=== PATIENT | female | born 1990 | race American Indian/Alaskan Native ===

== ENCOUNTER 2018-04-07 07:56 | Outpatient (CLI) | payer MEDICAID ==
[2018-04-07 09:41] LABS: Bilirubin,Urine NEG (Negative); Blood,Urine NEG (Negative); Color,Urine Yellow (Yellow); Mucus,Urine FEW /HPF; Protein,Urine <15 mg/dL mg/dL (Negative)
[2018-04-07] MEDS: BRETHINE SUB-Q PRN ×3 (09:48→11:25)
[2018-04-07] MEDS ORDERED: LACTATED RINGERS 1,000 ML IV ONE ×2 (10:00→12:39)
--- NOTE | 2018-04-07 10:53 | Ultrasound Report ---
OB LIMITED INDICATION: Vaginal bleeding. Evaluate placenta. COMPARISON: None similar. TECHNIQUE: Transabdominal grayscale ultrasound with Doppler interrogation. Gestation: Barnes Position: Cephalic Amniotic Fluid: WNL (7-24 cm) NIA = 20.2 cm Placenta: Anterior; no evidence of abruption Placental Grade: Zero Heart Rate: 133 BPM Cervical length: 4.8 cm (Normal > 3 cm) CONCLUSION: Findings, as above.
[2018-04-07] MEDS ORDERED: ROCEPHIN/NS 1 GM/50 ML 1 GM/50 ML BAG IV ONE (11:00)
[2018-04-07] MEDS ORDERED: PROCARDIA*For Tocolysis only PO SCH (13:00)
[2018-04-07 13:36] VITALS: BP 113/75
== END 2018-04-07 15:03 | disposition home or self-care (01) ==
LOC: EDSTATUS 08:21 → TRG 08:25
PROVIDERS: ATTEND Obstetrics & Gynecology
DX: O46.92 Antepartum hemorrhage, unspecified, second trimester (principal); Z3A.27 27 weeks gestation of pregnancy
CPT/HCPCS: 59025; 76815; 81001; 96360; 96361; 96372; J0696; J3105; J7120

== ENCOUNTER 2018-06-17 23:48 | Outpatient (CLI) | payer MEDICAID ==
[2018-06-18 00:15] VITALS: BP 125/80
[2018-06-18] MEDS ORDERED: LACTATED RINGERS 1,000 ML IV ONE (01:55)
[2018-06-18] MEDS ORDERED: VISTARIL PO ONE (03:12)
== END 2018-06-18 03:31 | disposition home or self-care (01) ==
LOC: TRG 23:48
PROVIDERS: ATTEND Obstetrics & Gynecology
DX: O47.03 False labor before 37 completed weeks of gestation, third trimester (principal); Z3A.37 37 weeks gestation of pregnancy
CPT/HCPCS: 59025; 96360; J7120; Q0177

== ENCOUNTER 2019-09-25 16:32 | Emergency (ER) | payer MEDICAID ==
[2019-09-25 17:02] VITALS: BP 117/77
--- NOTE | 2019-09-25 17:34 | Event Note ---
ED Screening Note Date of service: 09/25/19 Time: 17:33 ED Screening Note: 29 y o f presents at 8 weeks cc of vag bleed and pelv pain began today This initial assessment/diagnostic orders/clinical plan/treatment(s) is/are subject to change based on patients health status, clinical progression and re- assessment by fellow clinical providers in the ED. Further treatment and workup at subsequent clinical providers discretion. Patient/guardian urged not to elope from the ED as their condition may be serious if not clinically assessed and managed. Initial orders include: labs, ua, US acc eval
[2019-09-25 18:13] LABS: Basophils % (Auto) 0.8 % (0.0-1.8); Eosinophils # (Auto) 0.1 K/mm3 (0.0-0.4); Eosinophils % (Auto) 0.9 % (0.0-4.3); Hematocrit 39.6 % (30.3-42.9); Hemoglobin 13.5 gm/dl (10.1-14.3); Lymphocytes # (Auto) 2.2 K/mm3 (1.2-5.4); Mean Corpuscular HGB Conc 34 % (30-34); Mean Corpuscular Volume 90 fl (79-97); Monocytes # (Auto) 0.5 K/mm3 (0.0-0.8); Platelet Count 256 K/mm3 (140-440); Red Blood Count 4.38 M/mm3 (3.65-5.03); Red Cell Distribution Width 12.9 % (13.2-15.2)
[2019-09-25 19:15] LABS: Bilirubin,Urine NEG (Negative); Blood,Urine MOD (Negative); Color,Urine Yellow (Yellow); Mucus,Urine FEW /HPF; Protein,Urine <15 mg/dL mg/dL (Negative); Urobilinogen,Urine < 2.0 mg/dL (<2.0)
--- NOTE | 2019-09-25 20:02 | Ultrasound Report ---
EXAMINATION: Obstetrical Ultrasound INDICATION: Vaginal bleeding in early . COMPARISON: Obstetrical ultrasound, 07/06/2018. FINDINGS: There is a single, living intrauterine . [place]-rump length = 0.8 cm = 6 weeks, 6 day(s). heart rate is 118 beats per minute. The bilateral adnexal regions appear within normal limits. There is no free pelvic fluid. IMPRESSION: 1. Single living intrauterine with estimated gestational age of 6 weeks, 6 days. Signer Name: Yesy Melvin MD Signed: 09/25/2019 7:58 PM Workstation Name: [id number]
== END 2019-09-25 18:51 | disposition left against medical advice (07) ==
LOC: ED 16:32
DX: O20.8 Other hemorrhage in early pregnancy (principal); Z3A.08 8 weeks gestation of pregnancy; Z53.21 Procedure and treatment not carried out due to patient leaving prior to being seen by health care provider
CPT/HCPCS: 36415; 76801; 76817; 81001; 84702; 85025; 86900; 86901

== ENCOUNTER 2019-09-25 21:40 | Emergency (ER) | payer MEDICAID ==
--- NOTE | 2019-09-25 22:14 | Emergency Department Report ---
ED HPI - General Chief complaint: Vaginal Bleeding Stated complaint: PAIN,BLEEDING 8 WEEKS Time Seen by Provider: 09/25/19 21:52 Source: patient Mode of arrival: Ambulatory Limitations: No Limitations - History of Present Illness Initial comments: Mrs. Luo is a 29-year-old [place] female vaginal spotting times today so she is currently 8 weeks she is . Patient has [employer] for follow- up but could not get in today for poor. States bleeding was pink spotting scant amount 1 episode. Currently with abdominal cramping for over 10. There is no nausea vomiting. There is no fever or chills. Symptoms are exacerbated by nothing. Symptoms are relieved by nothing. Pt states blood type is O+ verified via lab hx. MD Complaint: abdominal pain, vaginal bleeding Onset/Timin -: hour(s) Location: pelvis, abdomen Radiation: LLQ, suprapubic Severity: moderate Severity scale (0 -10): 4 Quality: cramping Consistency: intermittent Improves with: none Worsens with: none Associated symptoms: vaginal bleeding, abdominal pain (cramping ). denies: nausea/vomiting, vaginal discharge, dysuria, dysparuenia Vaginal bleeding: light :: Yes Number of weeks : 8 OB History - Current : no complications OB History - Previous Pregnancies: no complications - Related Data : 3 Para: 2 Ab: 0 Home Medications Medication Instructions Recorded Confirmed Last Taken Pnv No.95/Ferrous Fum/Folic AC 1 tab PO DAILY 04/07/18 06/18/18 06/11/18 [ Vitamins Tablet] Previous Rx's Medication Instructions Recorded Last Taken Type Ibuprofen [Motrin] 600 mg PO Q8H PRN #30 tablet 07/08/18 Unknown Rx oxyCODONE /ACETAMINOPHEN [Percocet 1 tab PO Q6HR PRN #30 tablet 07/08/18 Unknown Rx 5/325] labetaloL [Labetalol 100mg TAB] 100 mg PO BID #30 tablet 07/09/18 Unknown Rx Acetaminophen [Tylenol] 650 mg PO Q6H PRN #30 capsule 09/25/19 Unknown Rx Allergies Allergy/AdvReac Type Severity Reaction Status Date / Time No Known Allergies Allergy Verified 09/25/19 21:43 ED Review of Systems ROS: Stated complaint: PAIN,BLEEDING 8 WEEKS Other details as noted in HPI Constitutional: denies: chills, fever Eyes: denies: eye pain, eye discharge, vision change ENT: denies: ear pain, throat pain Respiratory: denies: cough, shortness of breath, wheezing Cardiovascular: denies: chest pain, palpitations Endocrine: no symptoms reported Gastrointestinal: abdominal pain. denies: nausea, vomiting, diarrhea, constipation, melena Genitourinary: denies: urgency, dysuria, frequency, hematuria, discharge, dyspareunia Musculoskeletal: denies: back pain, joint swelling, arthralgia, myalgia Skin: denies: rash, lesions Neurological: denies: headache, weakness, paresthesias Psychiatric: denies: anxiety, depression Hematological/Lymphatic: denies: easy bleeding, easy bruising ED Past Medical Hx - Past Medical History Hx Hypertension: Yes (gHTN) Hx Heart Attack/AMI: No Hx Diabetes: No Hx Deep Vein Thrombosis: No Hx Liver Disease: Yes (elevated LFTs ) Hx Renal Disease: No Hx Sickle Cell Disease: No Hx Seizures: No Hx Asthma: No Hx HIV: No - Social History Smoking Status: Never Smoker - Medications Home Medications: Home Medications Medication Instructions Recorded Confirmed Last Taken Type Pnv No.95/Ferrous Fum/Folic AC 1 tab PO DAILY 04/07/18 06/18/18 06/11/18 History [ Vitamins Tablet] Ibuprofen [Motrin] 600 mg PO Q8H PRN #30 tablet 07/08/18 Unknown Rx oxyCODONE /ACETAMINOPHEN [Percocet 1 tab PO Q6HR PRN #30 tablet 07/08/18 Unknown Rx 5/325] labetaloL [Labetalol 100mg TAB] 100 mg PO BID #30 tablet 07/09/18 Unknown Rx Acetaminophen [Tylenol] 650 mg PO Q6H PRN #30 capsule 09/25/19 Unknown Rx ED Physical Exam - General Limitations: No Limitations General appearance: alert, in no apparent distress - Head Head exam: Present: atraumatic, normocephalic - Eye Eye exam: Present: normal appearance, PERRL, EOMI Pupils: Present: normal accommodation - ENT ENT exam: Present: mucous membranes moist - Neck Neck exam: Present: normal inspection, full ROM. Absent: tenderness - Respiratory Respiratory exam: Present: normal lung sounds bilaterally. Absent: respiratory distress, wheezes, stridor - Cardiovascular Cardiovascular Exam: Present: regular rate, normal rhythm, normal heart sounds. Absent: systolic murmur, diastolic murmur, rubs, gallop - GI/Abdominal GI/Abdominal exam: Present: soft, normal bowel sounds. Absent: distended, tenderness, guarding, rebound, rigid, bruit, hernia - Rectal Rectal exam: Present: deferred - External exam: Present: other (exam deferred by patient ) - Extremities Exam Extremities exam: Present: normal inspection, full ROM. Absent: tenderness - Back Exam Back exam: Present: normal inspection, full ROM. Absent: tenderness, CVA tenderness (R), CVA tenderness (L), rash noted - Neurological Exam Neurological exam: Present: alert, oriented X3 - Psychiatric Psychiatric exam: Present: normal affect, normal mood - Skin Skin exam: Present: warm, dry, intact, normal color. Absent: rash ED Medical Decision Making - Radiology Data Radiology results: report reviewed, image reviewed Ordering Physician: LOCO CHILEL Date of Service: 09/25/19 Procedure(s): US OB transvaginal Accession Number(s): [id number] cc: LOCO CHILEL EXAMINATION: Obstetrical Ultrasound INDICATION: Vaginal bleeding in early . COMPARISON: Obstetrical ultrasound, 07/06/2018. FINDINGS: There is a single, living intrauterine . [place]-rump length = 0.8 cm = 6 weeks, 6 day(s). heart rate is 118 beats per minute. The bilateral adnexal regions appear within normal limits. There is no free pelvic fluid. IMPRESSION: 1. Single living intrauterine with estimated gestational age of 6 weeks, 6 days. Signer Name: Yesy Melvin MD Signed: 09/25/2019 7:58 PM Workstation Name: [id number] Transcribed By: EB Dictated By: Yesy Melvin MD Electronically Authenticated By: Yesy Melvin MD Signed Date/Time: 09/25/191957 DD/ 54 TD/TT: - Medical Decision Making US Single IUP 6 weeks and 6 days, FHR 118 bpm , labs normal, plan dx Threatened miscarriage, pt will follow up wit OBGYN tomorrow as scheduled. Will return to emergency if symptoms worsen. pt is currently a/o x 3, tolerating po intake without symptoms. Critical care attestation.: If time is entered above; I have spent that time in minutes in the direct care of this critically ill patient, excluding procedure time. ED Disposition Clinical Impression: Threatened miscarriage in early Qualifiers: Weeks of gestation: less than 8 weeks Qualified Code(s): Z3A.01 - Less than 8 weeks gestation of Disposition: DC- TO HOME OR SELFCARE Is pt being admited?: No Does the pt Need Aspirin: No Condition: Stable Instructions: Threatened Miscarriage (ED), (ED) Prescriptions: Acetaminophen [Tylenol] 650 mg PO Q6H PRN #30 capsule PRN Reason: pain Referrals: REJI JENNINGS MD [Staff Physician] - 3-5 Days Forms: Work/School Release Form(ED) Time of Disposition: 22:28
[2019-09-25 23:28] VITALS: BP 127/88
== END 2019-09-25 22:40 | disposition home or self-care (01) ==
LOC: ED 21:40
DX: O20.0 Threatened abortion (principal); O16.1 Unspecified maternal hypertension, first trimester; Z79.899 Other long term (current) drug therapy; Z3A.01 Less than 8 weeks gestation of pregnancy
CPT/HCPCS: 36415; 76801; 76817; 81001; 84702; 85025; 86900; 86901; 99281

== ENCOUNTER 2021-10-02 00:31 | Observation (INO) | payer MEDICAID, OTHER ==
[2021-10-02] MEDS ORDERED: LACTATED RINGERS 500 ML IV ONE (00:55)
[2021-10-02] MEDS ORDERED: LACTATED RINGERS 1,000 ML ONE (01:34)
[2021-10-02] MEDS ORDERED: hydrALAZINE 20 MG/1 ML INJ IV ONE (01:57)
[2021-10-02] MEDS ORDERED: TERBUTALINE 1 MG/1 ML INJ ONE (02:37)
[2021-10-02] MEDS ORDERED: hydrALAZINE 20 MG/1 ML INJ IV PRN (03:00)
[2021-10-02] MEDS ORDERED: MAGNESIUM SULFATE 4 GM/100 ML BAG IV ONE (03:00)
[2021-10-02] MEDS ORDERED: LACTATED RINGERS 1,000 ML IV SCH (03:00)
[2021-10-02 03:35] LABS: Hematocrit 35.2 % (30.3-42.9); Hemoglobin 11.4 gm/dl (10.1-14.3); Mean Corpuscular HGB Conc 33 % (30-34); Mean Corpuscular Volume 91 fl (79-97); Platelet Count 153 K/mm3 (140-440); Red Blood Count 3.88 M/mm3 (3.65-5.03); Red Cell Distribution Width 13.3 % (13.2-15.2)
[2021-10-02 03:38] LABS: Alanine Aminotransferase 5 units/L (7-56); Albumin 3.3 g/dL (3.9-5); Blood Urea Nitrogen 3 mg/dL (7-17); Calcium 8.3 mg/dL (8.4-10.2); Hemolysis Index 173
[2021-10-02 03:39] LABS: BUN/Creatinine Ratio 8; Bilirubin,Direct < 0.2 mg/dL (0-0.2)
[2021-10-02 03:48] LABS: INR 0.8 (0.87-1.13)
[2021-10-02 03:49] LABS: Partial Thromboplastin Time 30.8 Sec. (24.2-36.6)
[2021-10-02] MEDS: MAGNESIUM SULFATE 40GM/1000ML 40 GM/1,000 ML BAG IV SCH ×2 (04:38→23:39)
--- NOTE | 2021-10-02 04:58 | Ultrasound Report ---
ULTRASOUND OBSTETRIC LIMITED ULTRASOUND BIOPHYSICAL PROFILE INDICATION / CLINICAL INFORMATION: increased bp. Clinical Gestational Age (GA) in weeks, days: 34 weeks 3 days TECHNIQUE: Transabdominal. COMPARISON: None available. FINDINGS: BREATHING MOVEMENT = 2 GROSS BODY MOVEMENT = 2 TONE = 2 QUALITATIVE AMNIOTIC FLUID VOLUME = 2 TOTAL BIOPHYSICAL SCORE = 8/8 HEART RATE (beats per minute): 135 AMNIOTIC FLUID INDEX (cm) = 6.0 (normal = 7-24 cm) PRESENTATION: Cephalic. ADDITIONAL FINDINGS: None. IMPRESSION: 1. Biophysical Score = 8/8 2. Amniotic fluid index is 6.0 cm. Signer Name: Amarilis Bailey MD Signed: 10/02/2021 4:54 AM Workstation Name: [id number]
[2021-10-02] MEDS: ACETAMINOPHEN 325 MG TAB PO PRN ×2 (10:29→19:47)
[2021-10-02] MEDS: BETAMET ACET/BETAMET NA PH 6 MG/ML INJ 5 ML MDV IM SCH (10:29)
--- NOTE | 2021-10-02 10:58 | History and Physical Report ---
History of Present Illness Date of examination: 10/02/21 Date of admission: 10/02/21 03:00 Chief complaint: Elevated blood pressures History of present illness: 31-year-old at 34 and 4 weeks who presents with a complaint of not feeling well. The patient states she checked her blood pressures at home was found to be elevated. The patient has a history of preeclampsia in previous . Labetalol had been in initiated in this of 200 mg daily. She denies any right upper quadrant pain or headaches. Past History Past Medical History: other (-induced hypertension) Past Surgical History: no surgical history Social history: single - Obstetrical History Expected Date of Delivery: 11/09/21 Actual Gestation: 34 Week(s) 4 Day(s) : 4 Para: 3 Hx # Term Pregnancies: 2 Number of Pregnancies: 1 Spontaneous Abortions: 1 Induced : 0 Number of Living Children: 3 Medications and Allergies Allergies Allergy/AdvReac Type Severity Reaction Status Date / Time No Known Allergies Allergy Verified 09/25/19 21:43 Home Medications Medication Instructions Recorded Confirmed Last Taken Type labetaloL [Labetalol 100mg TAB] 100 mg PO BID #30 tablet 07/09/18 04/02/20 04/01/20 Rx HYDROcodone/APAP 5-325 [[place] 1 each PO Q6HR PRN #15 tablet 04/06/20 Unknown Rx 5/325] Ibuprofen [Motrin] 800 mg PO Q8HR PRN #30 tablet 04/06/20 Unknown Rx labetaloL [Labetalol 200mg TAB] 200 mg PO BID #60 tablet 04/06/20 Unknown Rx Active Meds: Active Medications Acetaminophen (Acetaminophen 325 Mg Tab) 650 mg PO Q6H PRN PRN Reason: Pain, Mild (1-3) Last Admin: 10/02/21 10:29 Dose: 650 mg Betamethasone Acet/Betameth SodPhos (Betamet Acet/Betamet Na Ph 6 Mg/Ml Inj 5 Ml Mdv) 12 mg IM Q24H [facility] Stop: 10/03/21 09:01 Last Admin: 10/02/21 10:29 Dose: 12 mg Hydralazine HCl (Hydralazine 20 Mg/1 Ml Inj) 5 mg IV Q30MIN PRN PRN Reason: Hypertension Last Admin: 10/02/21 03:43 Dose: 5 mg Lactated Ringer's (Lactated Ringers) 1,000 mls @ 125 mls/hr IV DIRECT [facility] Magnesium Sulfate (Magnesium Sulfate 40gm/1000ml) 40 gm in 1,000 mls @ 50 mls/hr IV DIRECT [facility] Last Admin: 10/02/21 04:38 Dose: 2 gm/hr, 50 mls/hr Labetalol HCl (Labetalol 200 Mg Tab) 200 mg PO BID [facility] Last Admin: 10/02/21 10:29 Dose: 200 mg - Vital Signs Vital signs: Vital Signs Pulse BP 85 186/110 10/02/21 00:54 10/02/21 00:54 Temp Pulse Resp BP Pulse Ox 97.8 F 92 H 14 135/92 99 10/02/21 07:40 10/02/21 10:44 10/02/21 03:57 10/02/21 10:29 10/02/21 10:44 - Physical Exam Breasts: Positive: deferred Cardiovascular: Regular rate Lungs: Positive: Clear to auscultation Abdomen: Positive: normal appearance Results Result Diagrams: 10/02/21 02:14 10/02/21 02:14 Abnormal lab results 10/02/21 10/02/21 Range/Units 02:14 02:14 PT 12.0 L (12.2-14.9) Sec. INR 0.80 L (0.87-1.13) Sodium 133 L (137-145) mmol/L Carbon Dioxide 21 L (22-30) mmol/L BUN 3 L (7-17) mg/dL Creatinine 0.4 L (0.6-1.2) mg/dL Calcium 8.3 L (8.4-10.2) mg/dL ALT 5 L (7-56) units/L Alkaline Phosphatase 148 H (35-129) units/L Albumin 3.3 L (3.9-5) g/dL All other labs normal. Assessment and Plan - Patient Problems (1) induced hypertension Current Visit: Yes Status: Acute Plan to address problem: Patient admitted for evaluation for preeclampsia 24-hour urine is being collected Magnesium therapy is initiated. The patient will receive betamethasone during this hospitalization.
[2021-10-03] MEDS: ACETAMINOPHEN 325 MG TAB PO PRN (01:00)
[2021-10-03] MEDS: BETAMET ACET/BETAMET NA PH 6 MG/ML INJ 5 ML MDV IM SCH (09:38)
[2021-10-03 12:30] LABS: Creatinine 24 Hour,Urine 1.3 (0.8-2.8); Creatinine,Urine 20.9 mg/dL (0.1-20.0)
[2021-10-03 12:37] VITALS: BP 132/84
== END 2021-10-03 14:14 | disposition home or self-care (01) ==
LOC: TRG 00:31 → APU 00:33 → TRG 03:00 → LD 03:00
PROVIDERS: ADMIT Obstetrics & Gynecology; ATTEND Obstetrics & Gynecology
DX: O13.3 Gestational [pregnancy-induced] hypertension without significant proteinuria, third trimester (principal); O26.90 Pregnancy related conditions, unspecified, unspecified trimester; C00.0 Malignant neoplasm of external upper lip; Z3A.34 34 weeks gestation of pregnancy
CPT/HCPCS: 36415; 59025; 76815; 76819; 80048; 80076; 82570; 83735; 84156; 85027; 85610; 85730; 96361; 96365; 96366; 96372; 96375; 96376; G0378; J0360; J0702; J3475; J7120; 96360

== ENCOUNTER 2021-11-14 18:50 | Emergency (ER) | payer OTHER ==
[2021-11-14 19:52] VITALS: BP 146/104
== END 2021-11-15 07:19 | disposition left against medical advice (07) ==
LOC: ED 18:50
DX: O90.0 Disruption of cesarean delivery wound (principal); Z53.21 Procedure and treatment not carried out due to patient leaving prior to being seen by health care provider